=== PATIENT | female | born 1960 | race Hispanic/Latino ===

== ENCOUNTER 2024-04-19 17:47 | Emergency (ER) | payer SELFPAY ==
--- NOTE | ~2024-04-19 | CT_ITS ---
EXAMINATION: CT brain wo con DATE: 04/19/2024 19:47 INDICATION: Headache TECHNIQUE: Computed tomography (CT) of the head was performed without intravenous contrast. Sagittal and coronal reconstructions were performed. The mA was adjusted according to patient size. Iterative reconstruction technique was employed. The dose-length product was 249.72 mGy-cm. COMPARISON: None FINDINGS: No acute intracranial hemorrhage, acute infarction or abnormal extra axial fluid collection. Ventricl es are normal and symmetric. No mass/mass effect. The orbits, paranasal sinuses and mastoid air cells are normal. IMPRESSION: 1. No acute cardiopulmonary disease. Reviewed, dictated and finalized at location A.
--- NOTE | ~2024-04-19 | CT_ITS ---
EXAMINATION: CT abdomen pelvis w con DATE: 04/19/2024 19:47 INDICATION: Abdominal pain TECHNIQUE: Computed tomography (CT) of the abdomen and pelvis was performed with 100 mL Omnipaque-350 intravenous contrast. Automated exposure control and iterative reconstruction technique were employe d. The dose-length product was 249.72 mGy-cm. COMPARISON: None FINDINGS: Mild dependent atelectasis in bilateral lower lobes. Heart size is normal. No pericardial or pleural effusion. Liver, gallbladder, spleen, pancreas and bilateral adrenal glands and right kidney are norm al. 1.4 cm left renal cyst. Moderate to large amount of stool scattered throughout the colon. No nedra l obstruction. Bladder is normal. The uterus is not identified and has likely been surgically resecte d. Bilateral adnexa are unremarkable. No free intraperitoneal gas or fluid. No pathologically enlarge d abdominal or pelvic lymphadenopathy. Prominent Schmorl's node along the inferior endplate of L2. Mi ld lumbar levocurvature. Moderate lumbosacral spondylosis with mild spondylosis in the more cephalad lumbar spine. IMPRESSION: 1. No acute intra-abdominal/pelvic process. Reviewed, dictated and finalized at location A.
[2024-04-19 17:49] VITALS: BP 156/90; PULSE 89; RESP 16; TEMP 36.6; O2SAT 99
[2024-04-19 18:38] LABS: Basophils Absolute Auto 0.1 K/mm3 (0.0-0.1); Basophils Percent Auto 0.6 % (0.2-1.2); Eosinophils Absolute Auto 0.2 K/mm3 (0-0.3); Eosinophils Percent Auto 1.8 % (0-4.4); Hematocrit 44.8 % (37.0-47.0); Hemoglobin 14.6 g/dL (12.0-15.0); Immature Granulocyte Absolute 0.02 K/mm3 (0.00-0.031); Immature Granulocyte Percent A 0.2 % (0-0.5); Lymphocytes Absolute Auto 4.48 K/mm3 (0.9-3.2); Lymphocytes Percent Auto 54.4 % (18.3-44.2); Mean Corpuscular HGB Conc 32.6 g/dl (32-36); Mean Corpuscular Hemoglobin 27.6 pg (26-34); Mean Corpuscular Volume 84.7 fl (80-100); Mean Platelet Volume 10.2 fl (7.4-10.4); Monocytes Absolute Auto 0.7 K/mm3 (0.1-0.6); Monocytes Percent Auto 8.3 % (2.6-8.5); Neutrophils Absolute Auto 2.9 K/mm3 (1.3-6.7); Neutrophils Percent Auto 34.7 % (45.5-73.1); Platelet Count Result 255 k/mm3 (150-375); Red Blood Count 5.29 M/mm3 (4.2-5.4); Red Cell Distribution Width 13.6 % (11.5-14.5); White Blood Count 8.2 K/mm3 (4.5-10.0)
[2024-04-19 18:50] LABS: Alanine Aminotransferase 28 U/L (6-35); Albumin Level 4.6 g/dL (3.5-5.1); Alkaline Phosphatase 85 U/L (38-126); Anion Gap 9 mmol/L (4-12); Aspartate Amino Transferase 31 U/L (14-36); Bilirubin,Total 0.4 mg/dL (0.2-1.3); Blood Urea Nitrogen 14 mg/dL (7-17); Calcium 9.5 mg/dL (8.4-10.2); Carbon Dioxide 31 mmol/L (22-30); Chloride 100 mmol/L (98-107); Estimated CRCL calculation 41 ml/min; Estimated Glomerular Filt Rate 56; Glucose 104 mg/dL (65-110); Lipase 408 U/L (23-300); Potassium 4.5 mmol/L (3.4-5.0); Sodium 140 mmol/L (137-145)
--- NOTE | 2024-04-19 18:57 | ECG_ITS ---
Test Date: 2024-04-19 19:59:34 Measurements Intervals [place] Rate: 90 P: 73 KS: 195 QRS: 40 QRSD: 94 T: 55 QT: 359 QTc: 439 Interpretive Statements SINUS RHYTHM NORMAL ELECTROCARDIOGRAM No previous ECG available for comparison Electronically Signed On 04-20-2024 14:55:24 CDT by Nico Finch M.D.
--- NOTE | 2024-04-19 19:37 | ED.ABDPAIN ---
HPI - Abdominal Pain General Chief Complaint: Abdominal Pain Stated Complaint: abd pain Time Seen by Provider: 04/19/24 18:05 Source: patient Mode of arrival: ambulatory Limitations: language barrier (machine container washer used (Mauricio #[id number] & [employer] #[id number])) History of Present Illness HPI narrative: Pt is a 63-year-old [place] female who travels back and forth between the [facility] and [place]. She reports she returned to the [place] about two weeks ago. Pt reports she has abdominal pain and a headache that started about a week ago, but last night both areas of pain worsened. She reports she could not sleep because of the headache and endorses this is the worst headache she's ever had. She denies sensitivity to light. Pt reports the headache covers her entire head. She has taken Paracetamol at home with no relief. Pt reports she has bilateral, upper abdominal pain that radiates to her flanks. She reports this has also worsened over the past week. Pt has been self-medicating with Mylanta and a SightCalln form of Compazine, but she has not gotten any relief. She also endorses diarrhea, pain with bowel movements, and has concerns about her intestines coming out of her rectum per the machine container washer. Pt denies melena, chest pain, and urinary symptoms. Pt reports she has not seen a doctor in many years. She self-medicates with Losartan 50mg at home to treat her high blood pressure. Pt reports being in the [facility] makes her sad and she wants to go back to [place]. She denies any thoughts of harming herself or anyone else. Related Data Allergies Allergy/AdvReac Type Severity Reaction Status Date / Time No Known Allergies Allergy Verified 04/19/24 17:53 Most Recent Cardiac Tests: No Data to Display Review of Systems Review of Systems: All systems reviewed & are unremarkable except as noted in HPI and below Exam Narrative: GENERAL: Well-appearing, well-nourished and in no acute distress. NECK: Supple, normal range of motion, no JVD. No lymphadenopathy. CARDIAC: Regular rate and rhythm without murmurs, rubs or gallops. RESPIRATORY: Clear to auscultation bilaterally. No wheezes, rales or rhonchi. ABDOMEN: Soft, normoactive bowel sounds throughout, pt is tender and guarding with palpitation, no rebound tenderness. No masses appreciated. EXTREMITIES: Normal range of motion, no swelling, clubbing or other deformities. NEUROLOGICAL: No neurological abnormalities. Cranial nerves II through XII grossly intact, no focal deficits noted. Normal speech. SKIN: Warm, dry, normal color, no rashes, no lesions. Course Reevaluation(s) Reevaluation #1: RUG TOUCH UP PAINTER went into reassess pt and provide she and her daughter with results. Pt continues to have LUQ pain. Will treat pt with a GI cocktail. Date: 04/19/24 Time: 22:00 Reevaluation #2: RUG TOUCH UP PAINTER went into pt's room with PA to reassess pt. She reports she is feeling better per machine container washer. RUG TOUCH UP PAINTER and PA had extensive discussion with pt and her daughter regarding her labs and imaging. Reassurance was provided via clay artisan. Explained the importance of following up as an outpatient. Pt and her daughter verbalized understanding. Date: 04/19/24 Time: 23:21 Vital Signs Vital signs: Vital Signs Temperature 36.6 C 04/19/24 17:49 Pulse Rate 89 04/19/24 17:49 Respiratory Rate 16 04/19/24 17:49 Blood Pressure 156/90 H 04/19/24 17:49 Pulse Oximetry 99 04/19/24 17:49 Oxygen Delivery Room Air 04/19/24 17:49 Temperature 36.6 C 04/19/24 17:49 Pulse Rate 89 04/19/24 17:49 Respiratory Rate 16 04/19/24 17:49 Blood Pressure 156/90 H 04/19/24 17:49 Pulse Oximetry 99 04/19/24 17:49 Oxygen Delivery Room Air 04/19/24 17:49 MDM - Abdominal Pain Lab Data 04/19/24 18:30 04/19/24 18:30 Labs: Lab Results 04/19/24 04/19/24 04/19/24 Range/Units 18:30 20:00 20:31 WBC 8.2 (4.5-10.0) K/mm3 RBC 5.29 (4.2-5.4) M/mm3
[2024-04-19] MEDS: METOCLOPRAMIDE HCL INJ 10 MG/2 ML VIAL IV PUSH (19:59)
[2024-04-19] MEDS: diphenhydrAMINE HCl INJ 50 MG/ML VIAL 25 MG IV PUSH (19:59)
[2024-04-19] MEDS: SODIUM CHLORIDE 0.9% IV 1,000 ML 999 ML IV CONT (20:00)
[2024-04-19] MEDS: ACETAMINOPHEN 500 MG TABLET 1000 MG PO (20:00)
[2024-04-19 20:14] LABS: Add Urine Microscopic? YES; Appearance Urine Clear (Clear); Bacteria Urine None Seen /hpf; Bilirubin Urine Negative (Negative); Blood Urine Negative (Negative); Color Urine Yellow (Yellow); Glucose Urine UA Negative (Negative); Ketones Urine Negative (Negative); Leukocyte Esterase Ur 2+ LEU/UL (Negative); Nitrate Urine Negative (Negative); Non Pathogenic Casts 0-2; Protein Urine Negative (Negative); RBC Urine 0-2 /hpf (0-2); Specific Grav Ur 1.009 (1.001-1.035); Squamous Epithelial Cell Urine None Seen /hpf (Few); Urobilinogen Urine 0.2 mg/dL (<2.0); pH Urine 7.5 (5.0-9.0)
[2024-04-19] MEDS: KETOROLAC 15 MG/ML VIAL (*BKC) IV PUSH (21:02)
[2024-04-19 21:12] LABS: Influenza A QL RT-PCR Negative (Negative); Influenza B QL RT-PCR Negative (Negative); RSV RNA, RT-PCR Negative (Negative); SARS-CoV-2 RNA PCR Negative (Negative)
[2024-04-19] MEDS: BELLADONNA ALK/PHENOB ELIX 10 ML, MAG HYDROX/ALUMINUM HYD/SIMETH 30 ML, LIDOCAINE HCL 2... PO (22:05)
[2024-04-19] MEDS: FAMOTIDINE 20 MG/2 ML VIAL IV PUSH (22:05)
== END 2024-04-19 23:53 | disposition home or self-care (01) ==
PROVIDERS: Physician Assistant; Emergency Provider Registered Nurse
DX: R10.12 Left upper quadrant pain (principal); R51.9 Headache, unspecified; Z20.822 Contact with and (suspected) exposure to COVID-19
CPT/HCPCS: 36415; 70450; 74177; 80053; 81001; 83690; 85025; 87086; 87088; 87637; 93005; 96374; 96375; 99284; A9270; J1200; J1885; J2765; J7030; Q9967